=== PATIENT | male | born 1950 | race Caucasian/White ===

== ENCOUNTER → 2020-11-19 07:43 | Outpatient (CLI) | payer MEDICARE, SELFPAY ==
--- NOTE | 2020-11-19 08:01 | MRI_ITS ---
EXAM: MR HEAD WITHOUT INTRAVENOUS CONTRAST : 1950 CLINICAL INDICATION: FACIAL DROOP X 10 DAYS TECHNIQUE: Multiplanar and multisequence MR images of the brain were obtained without intravenous contrast. This report was created using V[employer] report generation technology. COMPARISON: None. FINDINGS: BRAIN AND EXTRA-AXIAL SPACES: Multiple foci of increased T2 signal intensity within the cerebral white consistent with chronic microvascular disease. Similar changes are noted along the birgit and right cerebellum. Area of encephalomalacic change noted along the anterior inferior portion of the left temporal lobe. Questionable area of restricted diffusion within the left cerebellum measuring 9 mm in widest diameter possibly representing acute or subacute ischemia. No intra- or extra-axial hemorrhage. No intracranial mass or mass effect. Ventricles are appropriate for age. No hydrocephalus. Basal cisterns are patent. SELLA: Unremarkable. Normal sella turcica, pituitary gland, infundibular stalk, optic chiasm and hypothalamus. AUDITORY SYSTEM: Unremarkable. The internal auditory canals are patent. BONES/JOINTS: Unremarkable. No discrete lytic or blastic abnormalities. SINUSES: Unremarkable as visualized. Clear. MASTOID AIR CELLS: Unremarkable as visualized. Clear. ORBITS: Unremarkable as visualized. Both globes, extraocular muscles, optic nerves and retrobulbar fat appear unremarkable. VASCULATURE: Unremarkable as visualized. Normal flow voids in the major intracranial circulation. MRI/Brain without Contrast IMPRESSION: 1. Question small area of acute or subacute ischemia of the left cerebellum. 2. Extensive white matter and pontine changes likely related to chronic microvascular disease. 3. 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 at 0956 Reported and signed by: William Villegas MD Electronically Signed: William Villegas MD at 9:55 EDT Tel , Service support ,
== END ==
DX: R29.810 Facial weakness (principal)
CPT/HCPCS: 70551

== ENCOUNTER → 2020-12-22 12:43 | Outpatient (CLI) | payer MEDICARE, SELFPAY ==
--- NOTE | 2020-12-22 12:45 | CT_ITS ---
HISTORY: STROKE TECHNIQUE: Noncontrast axial images were obtained of the brain. Subsequently, routine carotid CT angiogram protocol was performed without and with IV contrast. In addition, images were obtained of the [place]. Nascet criteria using the distal ICAs for comparison were used for evaluation of stenoses. 3D reconstructions were reviewed. A radiation dose optimization technique was used for this scan. IV Contrast dosage and agent: 100mL [id number] COMPARISON: Brain MRI 11/19/20 FINDINGS: --CT BRAIN: BRAIN PARENCHYMA: No intra- or extra-axial hemorrhage. No evidence of acute infarct. Fine loss with diffuse low-attenuation of the periventricular white matter. No intracranial mass or mass effect. There is preservation of the snow/white matter interface. Posterior fossa structures are unremarkable. CSF SPACES: Appropriate for age. No hydrocephalus. Basal cisterns are patent. CALVARIUM, SKULL BASE, PARANASAL SINUSES AND MASTOID AIR CELLS: Clear. No acute abnormalities. ORBITS: Both globes, extraocular muscles, optic nerves and retrobulbar fat appear unremarkable. ASPECTS Score for Acute Strokes: 10 --CTA NECK: AORTIC ARCH AND BRANCHES: Unremarkable, cervical vessel origins patent. RIGHT CCA: No occlusion, significant stenosis or dissection. RIGHT ICA: No occlusion, significant stenosis or dissection. LEFT CCA: No occlusion, significant stenosis or dissection. LEFT ICA: No occlusion, significant stenosis or dissection. RIGHT VERTEBRAL ARTERY: No occlusion, significant stenosis or dissection. LEFT VERTEBRAL ARTERY: No occlusion, significant stenosis or dissection. NECK SOFT TISSUES: Multiple subcentimeter thyroid nodules, 18 mm nodule left lobe inferiorly. --CTA HEAD: --Anterior circulation: ICAs: No significant stenosis at the intracranial/visualized segments. ACAs: No significant stenosis at the visualized segments. ACOM: Present. MCAs: No significant stenosis at the visualized segments. --Posterior circulation: PCOMs: Patent bilaterally. 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 BASILAR ARTERY: No significant stenosis. VERTEBRAL ARTERIES: No significant stenosis at the intradural/visualized segments. No evidence of intracranial aneurysm or vascular malformation. CT/CTA Head AND Neck W/ Contrast IMPRESSION: Unenhanced CT Brain: No acute intracranial abnormalities. Changes of chronic microvascular ischemia. CTA Head: No CT evidence of hemodynamically significant stenosis, aneurysm or malformation. CTA Neck: No CT evidence of hemodynamically significant stenosis, aneurysm or malformation. Individualized dose optimization techniques were used for this CT. at 1627 Reported and signed by: El Alberto MD Electronically Signed: El Alberto MD at 16:26 EDT Tel , Service support ,
[2020-12-23 13:09] LABS: CREATININE FINGERSTICK 0.81 mg/dL (0.70-1.30); EGFR FINGERSTICK > 60 mL/min (>60)
== END ==
DX: I63.9 Cerebral infarction, unspecified (principal)
CPT/HCPCS: 70496; 70498; Q9967

== ENCOUNTER → 2020-12-23 12:41 | Outpatient (CLI) | payer MEDICARE, SELFPAY ==
--- NOTE | 2020-12-23 12:42 | ECHOD_ITS ---
Reason For Study: facial weakness, other general symptoms.signs, Procedure This was a 2D Doppler, Color Flow transthoracic echocardiogram. Exam performed in department. Left Ventricle Normal LV size. Left ventricular systolic function is normal. The estimated ejection fraction is 60 %. Diastolic function is indeterminate. No regional wall motion abnormalities noted. Right Ventricle Normal RV size. Normal systolic function. Atria The left atrium is mildly enlarged. Normal right atrium. No doppler evidence for ASD. Bubble contrast study negative for right to left interatrial shunt. Mitral Valve There is no mitral annular calcification. Mild focal mitral valve calcification of the anterior leaflet. Trivial mitral valve insufficiency. Tricuspid Valve Normal tricuspid valve. Mild tricuspid valve insufficiency. Right ventricular systolic pressure estimated to be 26 mmHg. Aortic Valve Trisinus/trileaflet aortic valve. Moderate focal aortic valve calcification. Pulmonic Valve The pulmonic valve is not well visualized. Mild (1+) pulmonic valve insufficiency. Great Vessels Normal sized aortic root. Pericardium/Pleural No pericardial effusion. Epicardial fat. Medication 22 gauge I.V. with prn adaptor inserted into left arm. Performed a rapid injection of agitated mix of 9 cc saline and 1cc air to assess for atrial septal defect. MMode/2D Measurements & Calculations LVIDd: 5.1 cm IVSd: 1.2 cm Ao root diam: 3.6 cm LVIDs: 3.7 cm LVPWd: 1.2 cm RVDd: 3.4 cm FS: 27.0 % LAV(MOD-bp): 83.1 ml LA A4 area: 24.9 cm2 LA dimension(2D): 4.1 cm LAV(MOD-bp) Indexed: 37.5 ml/m2 LAV(MOD-sp2): 81.5 ml LAV(MOD-sp4): 85.5 ml RA A4 area: 20.7 cm2 Time Measurements MV dec time: 0.24 sec Doppler Measurements & Calculations MV E max pablo: 50.5 cm/sec Lat Peak E' Pablo: 6.1 cm/sec Med Peak E' Pablo: 6.3 cm/sec MV A max pablo: 83.4 cm/sec E/E' lat: 8.3 E/E' med: 8.0 MV E/A: 0.61 Ao V2 max: 185.6 cm/sec LV V1 max: 100.9 cm/sec PA V2 max: 136.2 cm/sec Ao max P.8 mmHg LV V1 max P.1 mmHg Ao V2 mean: 131.1 cm/sec LV V1 mean P.9 mmHg Ao mean P.6 mmHg LV V1 mean: 64.0 cm/sec Ao V2 VTI: 35.0 cm LV V1 VTI: 20.2 cm TR max pablo: 238.8 cm/sec TR max P.8 mmHg ECHO/Echo Complete Interpretation Summary Left ventricular systolic function is normal. The estimated ejection fraction is 60 %. The left atrium is mildly enlarged. Mild focal mitral valve calcification of the anterior leaflet. Trivial mitral valve insufficiency. Mild tricuspid valve insufficiency. Moderate focal aortic valve calcification. Mild (1+) pulmonic valve insufficiency. Epicardial fat. Right ventricular systolic pressure estimated to be 26 mmHg. Diastolic function is indeterminate. Bubble contrast study negative for right to left interatrial shunt. Ordering Physician: MARYJO DIAZ Referring Physician: MARYJO DIAZ Performed By: Iram Peters, NAREN, RVT
== END ==
DX: R29.810 Facial weakness (principal); I35.8 Other nonrheumatic aortic valve disorders; Z86.73 Personal history of transient ischemic attack (TIA), and cerebral infarction without residual deficits
CPT/HCPCS: 93306; 93880; A4216

== ENCOUNTER → 2021-01-29 13:41 | Outpatient (CLI) | payer MEDICARE, SELFPAY ==
[2021-01-29 14:27] LABS: Erythrocyte Sedimentation Rate < 1 mm/hr (0-20)
[2021-01-29 15:04] LABS: CRP < 2.90 mg/L (0.0-3.0)
== END ==
DX: I63.9 Cerebral infarction, unspecified (principal)
CPT/HCPCS: 36415; 85652; 86140